=== PATIENT | female | born 1955 | race Asian ===

== ENCOUNTER 2022-06-28 01:27 | Emergency (ER) | payer MEDICARE ==
[~2022-06-28] VITALS: Ht 154.9 cm; Wt 58.1 kg
[2022-06-28] MEDS ORDERED: ALBUTEROL SULFATE HFA 8GM INHALATION AEROSOL INH PRN (02:15)
[2022-06-28] MEDS ORDERED: ASPIRIN 325 MG TAB PO ONE (02:15)
[2022-06-28] MEDS ORDERED: IOPAMIDOL 370 MG/ML 100 ML INFUS..BTL INJ ONE (02:51)
[2022-06-28] MEDS ORDERED: ASPIRIN 325 MG TAB ONE (04:16)
[2022-06-28] MEDS ORDERED: ASPIRIN 81 MG CHEW TAB ONE (04:17)
[2022-06-28] MEDS ORDERED: ALBUTEROL SULFATE HFA 8GM INHALATION AEROSOL INH ONE (04:17)
[2022-06-28] MEDS ORDERED: BENZONATATE100 MG PO (04:23)
[2022-06-28] MEDS ORDERED: IBUPROFEN800 MG PO (04:23)
[2022-06-28] MEDS ORDERED: PROAIR HFA INH8.5 GM INH (04:23)
== END 2022-06-28 05:14 | disposition home or self-care (01) ==
LOC: FSED 01:53
DX: R06.00 Dyspnea, unspecified (principal); U07.1 COVID-19; I10 Essential (primary) hypertension; E78.5 Hyperlipidemia, unspecified; R94.31 Abnormal electrocardiogram [ECG] [EKG]
CPT/HCPCS: 71045; 71260; 80053; 82553; 84484; 85025; 85610; 93005; 99284; Q9967

== ENCOUNTER 2024-05-20 21:15 | Emergency (ER) | payer MEDICARE ==
[~2024-05-20] VITALS: Ht 154.9 cm; Wt 54.4 kg
[~2024-05-20 21:15] MED LIST: BENZONATATE100 MG PO; IBUPROFEN800 MG PO; PROAIR HFA INH8.5 GM INH
[2024-05-20 21:30] VITALS: PULSE 88; RESP 16; TEMP 97.7
[2024-05-20] MEDS ORDERED: SODIUM CHLORIDE 0.9% 1000ML 1,000 ML IV SCH (21:45)
[2024-05-20] MEDS: SODIUM CHLORIDE 0.9% 500ML 500 ML IV STA (22:50)
[2024-05-21 00:02] VITALS: BP 129/69; PULSE 62; RESP 18; TEMP 98.3; O2SAT 98
== END 2024-05-20 23:20 | disposition home or self-care (01) ==
LOC: FSED 21:34
DX: R68.83 Chills (without fever) (principal); I10 Essential (primary) hypertension; E78.5 Hyperlipidemia, unspecified; Z11.52 Encounter for screening for COVID-19
CPT/HCPCS: 0223U; 80048; 81003; 85025; 87400; 87420; 99283; J7040